=== PATIENT | male | born 1995 | race Caucasian/White ===

== ENCOUNTER 2020-08-19 18:01 | Outpatient (REF) | payer OTHER, SELFPAY | END 2020-08-19 18:02 | disposition home or self-care (01) | LOC: HO.LAB 18:01 | PROVIDERS: Visit Provider Internal Medicine | DX: Z20.828 Contact with and (suspected) exposure to other viral communicable diseases (principal) | CPT/HCPCS: 87635 ==

== ENCOUNTER 2020-09-14 08:10 | Outpatient (REF) | payer OTHER, SELFPAY | END 2020-09-14 08:11 | disposition home or self-care (01) | LOC: HO.LAB 08:10 | PROVIDERS: Visit Provider Internal Medicine | DX: Z20.828 Contact with and (suspected) exposure to other viral communicable diseases (principal) | CPT/HCPCS: U0003 ==

== ENCOUNTER 2020-10-02 08:12 | Outpatient (REF) | payer OTHER, SELFPAY | END 2020-10-02 08:13 | disposition home or self-care (01) | LOC: HO.LAB 08:12 | PROVIDERS: Visit Provider Internal Medicine | DX: Z20.828 Contact with and (suspected) exposure to other viral communicable diseases (principal) | CPT/HCPCS: C9803; U0003 ==